=== PATIENT | female | born 1985 | race Caucasian/White ===

== ENCOUNTER 2023-12-23 19:07 | Emergency (ER) | payer BC, SELFPAY ==
--- NOTE | ~2023-12-23 | XR_ITS ---
EXAMINATION: XR chest 2V Exam Date/Time: 12/23/2023 20:02 CDT HISTORY: syncopal Comparison: None. RESULT: Lines, tubes, and devices: None. Lungs and pleura: Patchy subsegmental right medial basal airspace disease. Cardiomediastinal silhouette: Unremarkable. Other: No acute osseous or upper abdominal finding. IMPRESSION: Right medial basal subsegmental atelectasis/consolidation. Reviewed, dictated and finalized at location K.
--- NOTE | ~2023-12-23 | CT_ITS ---
EXAMINATION: CT brain wo con DATE: 12/23/2023 20:05 INDICATION: seizure vs syncope . TECHNIQUE: Computed tomography (CT) of the head was performed without intravenous contrast. The mA wa s adjusted according to patient size. Iterative reconstruction technique was employed. The dose-lengt h product was 681.00 mGy-cm. COMPARISON: None. FINDINGS: No acute intracranial hemorrhage or extra-axial fluid collection. No hydrocephalus, mass, or herniation. No acute ischemic infarct. Unremarkable dural venous sinus attenuation. No acute osseous abnormality. The aerated spaces are clear. IMPRESSION: No acute intracranial process. Reviewed, dictated and finalized at location K.
--- NOTE | 2023-12-23 19:12 | ECG_ITS ---
Test Date: 2023-12-23 19:17:55 Measurements Intervals [place] Rate: 89 P: 22 OK: 149 QRS: 31 QRSD: 113 T: 32 QT: 348 QTc: 424 Interpretive Statements SINUS RHYTHM MODERATE INTRAVENTRICULAR CONDUCTION DELAY [110+ ms QRS DURATION] MINIMAL ST DEPRESSION [0.025+ mV ST DEPRESSION] No previous ECG available for comparison Electronically Signed On 12-24-2023 11:32:18 CDT by Tyler Conway M.D.
[2023-12-23 19:21] VITALS: BP 113/74; PULSE 77; RESP 21; TEMP 36.6; O2SAT 97
[2023-12-23 19:25] VITALS: O2SAT 100
[2023-12-23 19:34] LABS: Basophils Absolute Auto 0.1 K/mm3 (0.0-0.1); Basophils Percent Auto 0.8 % (0.2-1.2); Eosinophils Absolute Auto 0.6 K/mm3 (0-0.3); Eosinophils Percent Auto 7.3 % (0-4.4); Hematocrit 40.8 % (37.0-47.0); Hemoglobin 13.7 g/dL (12.0-15.0); Immature Granulocyte Absolute 0.01 K/mm3 (0.00-0.031); Immature Granulocyte Percent A 0.1 % (0-0.5); Lymphocytes Absolute Auto 3.14 K/mm3 (0.9-3.2); Lymphocytes Percent Auto 40.7 % (18.3-44.2); Mean Corpuscular HGB Conc 33.6 g/dl (32-36); Mean Corpuscular Hemoglobin 33.3 pg (26-34); Mean Platelet Volume 9.6 fl (7.4-10.4); Monocytes Absolute Auto 0.5 K/mm3 (0.1-0.6); Monocytes Percent Auto 6.5 % (2.6-8.5); Neutrophils Absolute Auto 3.5 K/mm3 (1.3-6.7); Neutrophils Percent Auto 44.6 % (45.5-73.1); Platelet Count Result 273 k/mm3 (150-375); Red Blood Count 4.12 M/mm3 (4.2-5.4); Red Cell Distribution Width 13.2 % (11.5-14.5); White Blood Count 7.7 K/mm3 (4.5-10.0)
[2023-12-23 19:44] LABS: Alanine Aminotransferase 22 U/L (6-35); Albumin Level 3.8 g/dL (3.5-5.1); Alkaline Phosphatase 72 U/L (38-126); Anion Gap 13 mmol/L (4-12); Aspartate Amino Transferase 27 U/L (14-36); Bilirubin,Total 0.2 mg/dL (0.2-1.3); Blood Urea Nitrogen 10 mg/dL (7-17); Calcium 9.2 mg/dL (8.4-10.2); Carbon Dioxide 16 mmol/L (22-30); Chloride 109 mmol/L (98-107); Estimated CRCL calculation 74 ml/min; Estimated Glomerular Filt Rate 56; Glucose 116 mg/dL (65-110); Potassium 3.8 mmol/L (3.4-5.0); Sodium 138 mmol/L (137-145)
--- NOTE | 2023-12-23 19:47 | ED.SYNCOPE ---
HPI - Syncope General Chief Complaint: Syncope Stated Complaint: syncopy Time Seen by Provider: 12/23/23 19:26 History of Present Illness HPI narrative: 38-year-old female presents to the emergency department with her boyfriend at bedside for syncopal episode. Patient states she was at a wedding sitting at a table at the sales receptionist when she passed out. She states she was sitting in his seat when she became diaphoretic and dizzy, then leaned over her knees and lost consciousness. Her boyfriend came over to her side and states she was passed out for approximately 30-45 seconds. She did urinate on herself while passed out. There was no seizure-like activity. no postictal state. She admits to having 3 drinks at the wedding and taking 5 mg THC gummy. She also states that she was diagnosed with COVID approximately 6 weeks ago and was hospitalized at a hospital in [place]. Since then she has been very fatigued and has not fully recovered. She denies chest pain or shortness of breath, cough or congestion, abdominal pain, N/V/ D. No history of seizures. Related Data Allergies Allergy/AdvReac Type Severity Reaction Status Date / Time No Known Allergies Allergy Verified 12/23/23 19:56 Review of Systems Review of Systems: All systems reviewed & are unremarkable except as noted in HPI and below Exam Narrative: GENERAL: Well-appearing, well-nourished, and in no acute distress. Smells of alcohol HEAD: Normocephalic, atraumatic. EYES: PERRLA and EOMI. ENT: Nares clear, no rhinorrhea or epistaxis. Mucous membranes moist. NECK: Supple. CHEST: Clear to auscultation. No respiratory distress. HEART: Regular rate and rhythm. No murmur heard. Normal peripheral pulses. ABDOMEN: Soft, nontender, nondistended, normal active bowel sounds. EXTREMITIES: Normal range of motion. No edema. negative Homans bilaterally SKIN: Warm, dry, no rash. NEURO: No focal deficits. Alert and oriented x3. Cranial nerves 2-12 intact. Strength 5/5 in BUE and BLE. Sensation intact throughout. Normal [id number]. No pronator drift. Course Vital Signs Vital signs: Vital Signs Temperature 97.9 F 12/23/23 19:21 Pulse Rate 77 12/23/23 19:21 Respiratory Rate 21 H 12/23/23 19:21 Blood Pressure 113/74 12/23/23 19:21 Pulse Oximetry 97 12/23/23 19:21 Temperature 97.9 F 12/23/23 19:21 Pulse Rate 83 12/23/23 20:55 Respiratory Rate 21 H 12/23/23 19:21 Blood Pressure 98/63 L 12/23/23 20:55 Pulse Oximetry 100 12/23/23 19:25 Oxygen Delivery Room Air 12/23/23 19:25 MDM - Syncope MDM Narrative Medical decision making narrative: 38-year-old female presents to the emergency department for syncopal episode that occurred prior to arrival. See HPI for further history. Triage vital significant for mild tachypnea at 21, otherwise unremarkable. She is afebrile nontoxic appearing. Exam significant for the above. CBC without leukocytosis or anemia. Chemistries remarkable for bicarb of 16 with anion gap of 13 consistent with dehydration. Glucose is normal at 116. Creatinine also elevated 1.1 which is likely secondary to dehydration. ETOH is 31. Mag is normal at 2. EKG reveals sinus rhythm with rate of with rate of 89, normal MS interval, normal QRS duration, normal QTC, no ischemic changes. Troponin is undetectable. D-dimer within normal limits, wells score is low risk. CT brain is unremarkable. Orthostatic vital signs are positive, again consistent with dehydration. Workup discussed with the patient. She received 3 L of LRs as and feels significantly improved. She is ambulatory in the ED without ataxia or dizziness. Have repeat BMP shows resolution of her anion gap acidosis. Suspect her syncope is secondary to dehydration and orthostatic hypotension. I discussed increase fluid intake and importance of close follow-up with PCP. She is agreeable to plan verbalized understanding. Discharged in stable condition. [facility]
[2023-12-23] MEDS: LACTATED RINGERS 1,000 ML 999 ML IV CONT ×3 (19:56→21:03)
[2023-12-23 20:00] LABS: Ethanol 31 mg/dL (<10)
[2023-12-23 20:10] LABS: INR 1.1; Prothrombin Time 14.3 Seconds (11.1-14.7)
[2023-12-23 20:11] LABS: Partial Thromboplastin Time 24.8 Seconds (22.3-36.8)
[2023-12-23 20:13] LABS: NT Pro B Type Natriuretic Pept 41 pg/mL (19.9-100); Troponin I < 0.012 ng/mL (0.000-0.034)
[2023-12-23 20:54] VITALS: BP 103/73; BP 119/79; PULSE 83
[2023-12-23 20:55] VITALS: BP 98/63; PULSE 83
[2023-12-23 22:09] LABS: Anion Gap 9 mmol/L (4-12); Blood Urea Nitrogen 11 mg/dL (7-17); Carbon Dioxide 20 mmol/L (22-30); Chloride 108 mmol/L (98-107); Estimated CRCL calculation 89 ml/min; Estimated Glomerular Filt Rate > 60; Glucose 112 mg/dL (65-110); Potassium 4.1 mmol/L (3.4-5.0); Sodium 137 mmol/L (137-145)
[2023-12-23 22:15] VITALS: BP 110/75
[2023-12-23 22:22] LABS: Add Urine Microscopic? NO; Appearance Urine Clear (Clear); Bilirubin Urine Negative (Negative); Blood Urine Negative (Negative); Color Urine Yellow (Yellow); Glucose Urine UA Negative (Negative); Ketones Urine Negative (Negative); Leukocyte Esterase Ur Negative LEU/UL (Negative); Nitrate Urine Negative (Negative); Protein Urine Negative (Negative); Specific Grav Ur 1.014 (1.001-1.035); Urobilinogen Urine 0.2 mg/dL (<2.0)
[2023-12-23 22:32] LABS: BEDSIDEPREGUCG Negative (Negative)
[2023-12-23 22:47] VITALS: BP 109/67; PULSE 63; RESP 17; TEMP 36.8; O2SAT 100
== END 2023-12-23 22:45 | disposition home or self-care (01) ==
PROVIDERS: Emergency Medicine; Emergency Provider Physician Assistant
DX: I95.1 Orthostatic hypotension (principal); E86.0 Dehydration
CPT/HCPCS: 36415; 70450; 71046; 80048; 80053; 81003; 81025; 82077; 83735; 83880; 84484; 85025; 85380; 85610; 85730; 86850; 86900; 86901; 93005; 96360; 96361; 99284; J7120